=== PATIENT | female | born 1960 | race Caucasian/White ===

== ENCOUNTER 2018-11-03 07:16 | Day surgery (SDC) | payer BC ==
[2018-11-03] MEDS ORDERED: ONDANSETRON 4 MG INJ IV (09:00)
[2018-11-03] MEDS ORDERED: PROPOFOL 20 ML (09:01)
[2018-11-03] MEDS ORDERED: FENTAnyl 50 MCG/ML VIAL (09:01)
== END 2018-11-03 12:41 | disposition home or self-care (01) ==
LOC: GIL 07:16
DX: Z12.11 Encounter for screening for malignant neoplasm of colon (principal); K57.30 Diverticulosis of large intestine without perforation or abscess without bleeding; K64.8 Other hemorrhoids; D12.6 Benign neoplasm of colon, unspecified; E11.9 Type 2 diabetes mellitus without complications
CPT/HCPCS: 45380; 82962; 88305; 88341; 88342